=== PATIENT | male | born 1955 | race Caucasian/White ===

== ENCOUNTER 2021-10-16 07:29 | Outpatient (CLI) | payer MEDICARE, BC | END 2021-10-16 07:30 | disposition home or self-care (01) | LOC: NM 07:29 | PROVIDERS: ATTEND Internal Medicine Gastroenterology | DX: R10.84 Generalized abdominal pain (principal); R10.13 Epigastric pain; K40.90 Unilateral inguinal hernia, without obstruction or gangrene, not specified as recurrent; K59.00 Constipation, unspecified | CPT/HCPCS: 78227; A9537 ==

== ENCOUNTER 2021-12-04 08:41 | Day surgery (SDC) | payer MEDICARE, BC ==
[2021-12-02 15:34] VITALS: BMI 29.0
[2021-12-04] MEDS ORDERED: EPINEPHrine 1 MG/ML AMP ONE (09:58)
[2021-12-04] MEDS ORDERED: Bupivacaine 0.25% HCL 30 ML VIAL ONE (09:58)
[2021-12-04] MEDS ORDERED: Ketorolac Tromethamine 30 MG/ML VIAL ONE (10:03)
[2021-12-04] MEDS ORDERED: Acetaminophen 500 MG TAB ONE (10:03)
[2021-12-04] MEDS ORDERED: Sodium Chloride 0.9% 100 ML ONE (10:05)
[2021-12-04] MEDS ORDERED: CEFAZOLIN 2 GM VIAL ONE (10:05)
[2021-12-04] MEDS ORDERED: fentaNYL Citrate/PF 100 MCG/2 ML SYRINGE ONE (10:06)
[2021-12-04] MEDS ORDERED: Midazolam HCl 2 mg/2 ml Vial ONE (10:06)
[2021-12-04] MEDS ORDERED: ePHEDrine 50 MG/ML VIAL ONE (10:35)
[2021-12-04] MEDS ORDERED: Ondansetron PF 4 MG/2 ML Vial ONE (10:35)
[2021-12-04] MEDS ORDERED: Lidocaine 1% MPF 2 ML VIAL ONE (10:35)
[2021-12-04] MEDS ORDERED: Rocuronium Bromide 10 MG/ML (10ML VIAL) ONE (10:35)
[2021-12-04] MEDS ORDERED: PROPOFOL 200 MG/20 ML VIAL ONE (10:35)
[2021-12-04] MEDS ORDERED: NEOSTIGMINE 3 MG/3 ML SYR 3 MG/3 ML SYRINGE ONE (10:35)
[2021-12-04] MEDS ORDERED: PHENYLEPHRINE-NS 100 MCG/ML 10 ML SYRINGE ONE (10:35)
[2021-12-04] MEDS ORDERED: Glycopyrrolate 0.2 MG/ML 5 ML SYRINGE ONE (10:35)
[2021-12-04] MEDS ORDERED: Fentanyl 100 MCG/2 ML VIAL ONE (12:17)
[2021-12-04] MEDS ORDERED: HYDROcodone/Acetaminophen 5/325 mg Tablet ONE ×2 (14:19→14:20)
== END 2021-12-04 14:46 | disposition home or self-care (01) ==
LOC: SDC 08:41
PROVIDERS: ATTEND Specialist
PROC: 0YU54JZ Supplement Right Inguinal Region with Synthetic Substitute, Percutaneous Endoscopic Approach (ICD-10-PCS; principal; 2021-12-04)
PROC: 8E0W4CZ Robotic Assisted Procedure of Trunk Region, Percutaneous Endoscopic Approach (ICD-10-PCS; 2021-12-04)
DX: K40.90 Unilateral inguinal hernia, without obstruction or gangrene, not specified as recurrent (principal); I10 Essential (primary) hypertension; E78.5 Hyperlipidemia, unspecified; K31.84 Gastroparesis; M06.9 Rheumatoid arthritis, unspecified; M19.90 Unspecified osteoarthritis, unspecified site; Z79.82 Long term (current) use of aspirin; Z79.899 Other long term (current) drug therapy
CPT/HCPCS: 49650; C1781; J0171; J0690; J1885; J2250; J2405; J2704; J3010; J3490; S0020

== ENCOUNTER 2024-10-26 13:38 | Outpatient (CLI) | payer MEDICARE, BC ==
[2024-10-26 14:35] LABS: Estimated GFR - POC 73.0
== END 2024-10-26 13:39 | disposition home or self-care (01) ==
LOC: CT 13:38
PROVIDERS: ATTEND Internal Medicine Gastroenterology
DX: R10.9 Unspecified abdominal pain (principal); R19.7 Diarrhea, unspecified; K92.1 Melena
CPT/HCPCS: 36415; 74177; 82565